=== PATIENT | male | born 1950 | race Caucasian/White ===

== ENCOUNTER 2017-08-06 14:25 | Emergency (ER) | payer MEDICARE ==
[~2017-08-06] VITALS: Ht 190.5 cm; Wt 109.0 kg
[2017-08-06 14:28] VITALS: BP 144/87; PULSE 95; RESP 16; TEMP 98; O2SAT 97
[2017-08-06] MEDS ORDERED: APIX5TAB PO (14:41)
[2017-08-06] MEDS ORDERED: LYRI150C PO (14:41)
[2017-08-06] MEDS ORDERED: DILT120T PO (14:41)
--- NOTE | 2017-08-06 14:50 | PD ---
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 States that he was walking in his house slid on a rug and bumped his toe. Patient says his pain is 3 out of 10, non radiating. He has had ' significant' bleeding . Denies head trauma or falls. He was able to catch himself as he was sliding and did not have any other injuries during this incident. Denies foot or ankle pain otherwise. He is unable to move his toe through full range of motion. PFSH Past Medical History Atrial Fibrillation: Yes Medical other: Yes (NEUROPATHY) Tetanus Vaccination: < 5 Years Influenza Vaccination: No ?: Not Past Surgical History Surgical History: No Previous Surgery Tonsillectomy: Yes Social History Alcohol Use: Yes (OCC) Tobacco Use: No Allergies-Medications (Allergen,Severity, Reaction): Coded Allergies: No Known Allergies (Unverified , 08/06/17) Reported Meds & Prescriptions Reported Meds & Active Scripts Active Hydrocodone-Acetaminophen 5-325 mg Tab 1 Tab PO Q4H PRN 3 Days Keflex (Cephalexin) 500 Mg Cap 500 Mg PO Q8H 10 Days Reported Lyrica (Pregabalin) 150 Mg Cap 150 Mg PO DAILY Eliquis (Apixaban) 5 Mg Tab 5 Mg PO DAILY Diltiazem (Diltiazem HCl) 120 Mg Tab 120 Mg PO DAILY Review of Systems Except as stated in HPI: all other systems reviewed are Neg Physical Exam Narrative GENERAL: Well-nourished in no apparent distress SKIN: Focused skin assessment warm/dry. HEAD: Atraumatic. Normocephalic. EYES: Pupils equal and round. No scleral icterus. No injection or drainage. ENT: No nasal bleeding or discharge. Mucous membranes pink and moist. NECK: Trachea midline. No JVD. No midline tenderness CARDIOVASCULAR: Regular rate and rhythm. No murmur appreciated. RESPIRATORY: No accessory muscle use. Clear to auscultation. Breath sounds equal bilaterally. MUSCULOSKELETAL: No obvious deformities. No clubbing. No cyanosis. No edema. left great toe- apparent laceration of the flexor tendon, persistent bleeding, not grossly contaminated, 2 cm linear laceration over the dorsal aspect of PIP. Unable to fully assess neurovascular status is patient has idiopathic neuropathy and he personally does not know what is normal for him. NEUROLOGICAL: Awake and alert. No obvious cranial nerve deficits. Motor grossly within normal limits. Normal speech. BACK: No CVA tenderness. No rash. No point tenderness on palpation of the spine. PSYCHIATRIC: Appropriate mood and affect; insight and judgment normal. Data Data Last Documented VS Vital Signs Date Time Temp Pulse Resp B/P (MAP) Pulse Ox O2 Delivery O2 Flow Rate FiO2 08/06/17 14:28 98.0 95 16 144/87 (106) 97 Orders Orders Foot, Limited (2vws) (08/06/17 ) Tetanus/Diphtheria Tox Adult (Tetanus/Di (08/06/17 15:45) Support Splint (08/06/17 16:38) Cephalexin (Keflex) (08/06/17 16:45) Ed Discharge Order (08/06/17 17:11) Fiberglass Short Leg Splint Ad (08/06/17 ) MDM Medical Decision Making Medical Screen Exam Complete: Yes Emergency Medical Condition: Yes Differential Diagnosis Left great toe laceration, fracture, abrasion Narrative Course 66-year-old male with a 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 States that he was walking in his house slid on a rug and bumped his toe. Patient says his pain is 3 out of 10, non radiating. He has had ' significant' bleeding . Denies head trauma or falls. He was able to catch himself as he was sliding and did not have any other injuries during this incident. Denies foot or ankle pain otherwise. He is unable to move his toe through full range of motion. Vital signs stable. Physical exam findings consistent with a tendon rupture with laceration of the right great toe, persistent bleeding. Last Impressions Foot X-Ray 08/06/17 0000 Signed Impressions: Service Date/Time: Sunday, August 06, 2017 15:18 - CONCLUSION: Unremarkable study. Dasia Steward MD I requested assistance of my supervising physician, Dr Luis, who assisted me in repair of his laceration. He was found to have a significant tendon involvement. Patient follows podiatry regularly. Advised that he should follow-up as scheduled this week. Keflex and hydrocodone prescribed for outpatient use. Follow-up in emergency department for worsening or persistent symptoms Procedures Procedure Narrative LACERATION LOCATION: left toe PIP LENGTH: 3cm NUMBER OF STITCHES/JOANNA: 2, 1 simple interrupted, one horizontal mattress, see Dr. Luis's note for further information regarding repair REPAIR: The area of the laceration was prepped with Betadine and sterilely draped. A digital block was performed with 1% lidocaine without epinephrine. The wound was copiously irrigated and explored without evidence of foreign body , tendon injury or neurovascular injury. The wound was closed using 5-0 Prolene. This was a single layer repair. A sterile dressing was applied. The patient was advised to keep the dressing clean and dry. Patient tolerated the procedure well. Diagnosis Primary Impression: Toe laceration Qualified Codes: S91.112A - Laceration without foreign body of left great toe without damage to nail, initial encounter Additional Impression: Ligament rupture Referrals: [facility] Additional Instructions: Follow up with your primary care physician within 2-3 days. If your symptoms persist or worsen, return to the emergency department. Keep area clean and dry. You may use [id number] triple antibiotic ointments for your injury daily. Change dressings daily. If bleeding starts again, applied pressure and elevate the area. If he developed increased redness, swelling, or pain return to the emergency department. Suture removal in 7-10 days. Follow-up with food quality tester as soon as possible. Scripts Hydrocodone-Acetaminophen (Hydrocodone-Acetaminophen) 5-325 mg Tab 1 TAB PO Q4H Y for PAIN for 3 Days, #9 TAB 0 Refills Prov: Gilberto Luis MD 08/06/17 Cephalexin (Keflex) 500 Mg Cap 500 MG PO Q8H for Infection for 10 Days, #30 CAP 0 Refills Prov: Alanis Montgomery 08/06/17 Disposition: 01 DISCHARGE HOME Condition: Stable Alanis Montgomery Aug 06, 2017 14:50
[2017-08-06] MEDS ORDERED: TETANUS/DIPHTHERIA TOXOID ADULT 0.5 ML VIAL IM ONE (15:45)
--- NOTE | 2017-08-06 15:53 | RADRPT ---
EXAM DATE/TIME: 08/06/2017 15:18 [facility] COMPARISON: No previous studies available for comparison. INDICATIONS : Left foot pain, first digit after slipping in condo today. Unsure what he cut his toe on. MEDICAL HISTORY : None. SURGICAL HISTORY : None. ENCOUNTER: Initial ACUITY: 1 day PAIN SCORE: 3/10 LOCATION: Left foot , entire first digit. FINDINGS: No definite fractures, or dislocations are identified. No definite lytic or sclerotic lesion is seen . CONCLUSION: Unremarkable study. KThania Steward MD on August 06, 2017 at 15:51 Board Certified Radiologist. This report was verified electronically.
[2017-08-06] MEDS ORDERED: CEPH-460 PO (16:40)
[2017-08-06] MEDS ORDERED: CEPHALEXIN MONOHYDRATE 500 MG CAP PO ONE (16:45)
--- NOTE | 2017-08-06 16:46 | PD ---
Physical Exam Date Seen by Provider: Aug 06, 2017 Time Seen by Provider: 16:43 Narrative The PA came for help since she was having hard time approximating the skin edges of the laceration. I did the procedure. Please refer to my procedure note. Patient tolerated the procedure well. I've asked for a posterior splint since in my opinion patient has probably torn the PIP joint ligaments of that great toe. Patient will be discharged home on antibiotic and crutches. He follows up with Dr. Blunt and said he will follow-up early next week. Data Data Last Documented VS Orders Orders Foot, Limited (2vws) (08/06/17 ) Tetanus/Diphtheria Tox Adult (Tetanus/Di (08/06/17 15:45) Support Splint (08/06/17 16:38) Cephalexin (Keflex) (08/06/17 16:45) Ed Discharge Order (08/06/17 17:11) Fiberglass Short Leg Splint Ad (08/06/17 ) MDM Supervised Visit with MARISA: Yes Procedures Procedure Narrative LACERATION: Complicated left big toe laceration LOCATION: Left big toe just proximal to the nail cuticle LENGTH: 5 cm NUMBER OF STITCHES/JOANNA: 8 stitches REPAIR: The area of the laceration was prepped with Betadine and sterilely draped. The laceration was infiltrated with 1% lidocaine. This was done by the PA. The wound was copiously irrigated and explored without evidence of foreign body, tendon injury or neurovascular injury. The wound was closed using 3-0 Prolene. This was a single layer repair. A sterile dressing was applied. The patient was advised to keep the dressing clean and dry. Patient tolerated the procedure well. Diagnosis Primary Impression: Toe laceration Qualified Codes: S91.112A - Laceration without foreign body of left great toe without damage to nail, initial encounter Additional Impression: Ligament rupture Referrals: [facility] Additional Instruction: Follow up with your primary care physician within 2-3 days. If your symptoms persist or worsen, return to the emergency department. Keep area clean and dry. You may use [id number] triple antibiotic ointments for your injury daily. Change dressings daily. If bleeding starts again, applied pressure and elevate the area. If he developed increased redness, swelling, or pain return to the emergency department. Suture removal in 7-10 days. Follow-up with journeyman lineman as soon as possible. Scripts Hydrocodone-Acetaminophen (Hydrocodone-Acetaminophen) 5-325 mg Tab 1 TAB PO Q4H Y for PAIN for 3 Days, #9 TAB 0 Refills Prov: Gilberto Luis MD 08/06/17 Disposition: 01 DISCHARGE HOME Condition: Stable Gilberto Luis MD Aug 06, 2017 16:46
[2017-08-06] MEDS ORDERED: HYDR-3516 PO (17:11)
== END 2017-08-06 17:38 | disposition home or self-care (01) ==
LOC: PHEFT 14:25
DX: S91.112A Laceration without foreign body of left great toe without damage to nail, initial encounter (principal); S93.502A Unspecified sprain of left great toe, initial encounter; G60.9 Hereditary and idiopathic neuropathy, unspecified; W01.0XXA Fall on same level from slipping, tripping and stumbling without subsequent striking against object, initial encounter; Y92.009 Unspecified place in unspecified non-institutional (private) residence as the place of occurrence of the external cause; Z23 Encounter for immunization
CPT/HCPCS: 12004; 73620; 90471; 90714; 99284; E0113

== ENCOUNTER 2017-08-10 10:32 | Inpatient (IN) | payer OTHER, MEDICARE ==
[2017-08-10] VITALS (9 sets, daily range): BP systolic 101–119; BP diastolic 53–69; PULSE 76–110; RESP 15–20; TEMP 97.7–99.7; O2SAT 94–97
[~2017-08-10] VITALS: Ht 190.5 cm; Wt 115.5 kg
[~2017-08-10 10:32] MED LIST: APIX5TAB PO; CEPH-460 PO; DILT120T PO; HYDR-3516 PO; LYRI150C PO
[2017-08-10] MEDS ORDERED: DULO1CAP3 PO (10:50)
[2017-08-10] MEDS ORDERED: LEVA750T9 PO (10:50)
[2017-08-10] MEDS ORDERED: BACT800T5 PO (10:50)
[2017-08-10] MEDS ORDERED: GABA300C5 PO (10:50)
[2017-08-10] MEDS ORDERED: VANCOMYCIN INJ 1,500 MG in SODIUM CHLORID 0.9% 500 ML INJ 500 ML IV STA (10:59)
[2017-08-10] MEDS ORDERED: PIPERACIL-TAZO 4.5 GM PREMIX 100 ML IV STA (10:59)
--- NOTE | 2017-08-10 11:04 | PD ---
HPI Chief Complaint: Fever Time Seen by Provider: 10:45 Travel History International Travel<30 days: No Contact w/Intl Traveler<30days: No Traveled to known affect area: No History of Present Illness HPI This 66-year-old male presents for evaluation of fever. He was in his usual state of health until August 06. Has a history of neuropathy and he apparently injured his left great toe on that day. He was seen in the emergency department and had x-rays are negative for fracture or foreign body. He laceration of the left great toe which was sutured apparently with some difficulty. His says is considerable bleeding at this time. He is on Eliquis for atrial fibrillation. He had a follow-up visit with Dr. Blunt yesterday. That time additional x-rays were taken and he was told that there was a fracture which apparently had not been apparent on initial evaluation. He had been on Keflex since Tuesday. Last night the antibiotics were changed to Levaquin and Bactrim. This morning he developed a temperature 101. He has had some myalgias. He has neuropathy and does not have much discomfort with the toe. He has not had a sore throat or cough. Has not been any dysuria. He did take a Tylenol prior to coming in. PFSH Past Medical History Hx Anticoagulant Therapy: Yes Atrial Fibrillation: Yes Cardiovascular Problems: Yes Medical other: Yes (NEUROPATHY) Immunizations Current: Yes Past Surgical History Eye Surgery: Yes (BILATERAL CATARACTS REMOVED) Tonsillectomy: Yes Social History Alcohol Use: Yes (OCC) Tobacco Use: No Substance Use: No Allergies-Medications (Allergen,Severity, Reaction): Coded Allergies: No Known Allergies (Unverified , 08/10/17) Reported Meds & Prescriptions Reported Meds & Active Scripts Active Hydrocodone-Acetaminophen 5-325 mg Tab 1 Tab PO Q4H PRN [address] (Duloxetine HCl) 60 Mg Capdr 60 Mg PO HS Gabapentin 300 Mg Cap 300 Mg PO DAILY Bactrim DS (Sulfamethoxazole-Trimethoprim) 800-160 Mg Tab 1 Tab PO BID Levaquin (Levofloxacin) 750 Mg Tablet 750 Mg PO DAILY Lyrica (Pregabalin) 150 Mg Cap 150 Mg PO DAILY Eliquis (Apixaban) 5 Mg Tab 5 Mg PO DAILY Diltiazem (Diltiazem HCl) 120 Mg Tab 120 Mg PO DAILY Review of Systems Except as stated in HPI: all other systems reviewed are Neg General / Constitutional: Positive: Fever, Chills Eyes: No: Blurred Vision, Photophobia HENT: No: Headaches, Vertigo Cardiovascular: No: Chest Pain or Discomfort, Palpitations Respiratory: No: Cough, Shortness of Breath Gastrointestinal: No: Nausea, Vomiting, Diarrhea Genitourinary: No: Frequency Musculoskeletal: Positive: Myalgias Skin: Positive Rash Neurologic: No: Dizziness, Syncope Hematologic/Lymphatic: No: Easy Bruising Physical Exam Narrative GENERAL: Well-developed male SKIN: Focused skin assessment warm/dry. HEAD: Atraumatic. Normocephalic. EYES: Pupils equal and round. No scleral icterus. No injection or drainage. ENT: No nasal bleeding or discharge. Mucous membranes pink and moist. NECK: Trachea midline. No JVD. CARDIOVASCULAR: Irregular rate and rhythm. No murmur appreciated. RESPIRATORY: No accessory muscle use. Clear to auscultation. Breath sounds equal bilaterally. GASTROINTESTINAL: Abdomen soft, non-tender, nondistended. Hepatic and splenic margins not palpable. MUSCULOSKELETAL: No obvious deformities. No clubbing. No cyanosis. No edema. There is a sutured laceration of the left great toe. There is ecchymosis of the toe and some warmth. The left foot is warmer than the right. There is some erythema of the great toe extending up the front of the foot. NEUROLOGICAL: Awake and alert. No obvious cranial nerve deficits. Motor grossly within normal limits. Normal speech. PSYCHIATRIC: Appropriate mood and affect; insight and judgment normal. Data Data Last Documented VS Vital Signs Date Time Temp Pulse Resp B/P (MAP) Pulse Ox O2 Delivery O2 Flow Rate FiO2 08/10/17 11:10 95 Room Air 08/10/17 11:10 16 08/10/17 10:36 98.3 110 101/53 (69) Orders Orders Sepsis Workup Initiated (08/10/17 ) Complete Blood Count With Diff (08/10/17 10:59) Comprehensive Metabolic Panel (08/10/17 10:59) Lactic Acid Sepsis Protocol (08/10/17 10:59) Urinalysis - C+S If Indicated (08/10/17 10:59) Blood Culture (08/10/17 10:59) Blood Glucose (08/10/17 10:59) Ecg Monitoring (08/10/17 10:59) Iv Access Insert/Monitor (08/10/17 10:59) Oximetry (08/10/17 10:59) Oxygen Administration (08/10/17 10:59) Piperacil-Tazo 4.5 Gm Premix (Zosyn 4.5 (08/10/17 10:59) Vancomycin Inj (Vancomycin Inj) (08/10/17 10:59) Sodium Chlor 0.9% 1000 Ml Inj (Ns 1000 M (08/10/17 12:00) Labs Laboratory Tests Test 08/10/17 11:05 08/10/17 11:15 Urine Collection Type CLEAN CATCH Urine Color YELLOW Urine Turbidity CLEAR Urine pH 8.0 Urine Specific [place] 1.027 Urine Protein NEG mg/dL Urine Glucose (UA) 100 mg/dL Urine Ketones TRACE mg/dL Urine Occult Blood NEG Urine Nitrite NEG Urine Bilirubin NEG Urine Leukocyte Esterase NEG Urine WBC 0-2 /hpf Urine Mucus FEW /lpf Microscopic Urinalysis Comment CULT NOT INDICATED White Blood Count 14.4 TH/MM3 Red Blood Count 4.63 MIL/MM3 Hemoglobin 14.0 GM/DL Hematocrit 42.3 % Mean Corpuscular Volume 91.3 FL Mean Corpuscular Hemoglobin 30.1 PG Mean Corpuscular Hemoglobin Concent 33.0 % Red Cell Distribution Width 12.9 % Platelet Count 253 TH/MM3 Mean Platelet Volume 8.7 FL Neutrophils (%) (Auto) 90.0 % Lymphocytes (%) (Auto) 4.1 % Monocytes (%) (Auto) 4.0 % Eosinophils (%) (Auto) 1.7 % Basophils (%) (Auto) 0.2 % Neutrophils # (Auto) 13.0 TH/MM3 Lymphocytes # (Auto) 0.6 TH/MM3 Monocytes # (Auto) 0.6 TH/MM3 Eosinophils # (Auto) 0.2 TH/MM3 Basophils # (Auto) 0.0 TH/MM3 CBC Comment DIFF FINAL Differential Comment Blood Urea Nitrogen 18 MG/DL Creatinine 1.20 MG/DL Random Glucose 174 MG/DL Total Protein 7.1 GM/DL Albumin 3.4 GM/DL Calcium Level 8.8 MG/DL Alkaline Phosphatase 67 U/L Aspartate Amino Transf (AST/SGOT) 19 U/L Alanine Aminotransferase (ALT/SGPT) 41 U/L Total Bilirubin 0.8 MG/DL Sodium Level 138 MEQ/L Potassium Level 4.4 MEQ/L Chloride Level 104 MEQ/L Carbon Dioxide Level 25.0 MEQ/L Anion Gap 9 MEQ/L Estimat Glomerular Filtration Rate 61 ML/MIN Lactic Acid Level 2.6 mmol/L [facility] Medical Decision Making Medical Screen Exam Complete: Yes Emergency Medical Condition: Yes Medical Record Reviewed: Yes Differential Diagnosis Differential includes cellulitis of the toe, infected laceration, fracture Narrative Course White count is elevated at 14,000. His lactate is slightly elevated at 2.7. Blood sugar is 174. Patient does not have a history of diabetes. I discussed the case with Dr. Blunt who recommends intravenous antibiotics and admission. Diagnosis Primary Impression: Infected laceration Admitting Information Admitting Physician Requests: Admit Kyle Gautam MD Aug 10, 2017 11:04
[2017-08-10 11:26] LABS: BILIRUBIN, URINE NEG (NEG); BLOOD, URINE NEG (NEG); GLUCOSE,URINE 100 mg/dL (NEG); KETONE, URINE TRACE mg/dL (NEG); NITRITE,URINE NEG (NEG); URINE LEUKOCYTE ESTERASE NEG (NEG)
[2017-08-10 11:33] LABS: MUCUS URINE FEW /lpf (OCC); URINE COLOR YELLOW (YELLW/STRAW); WBC, URINE 0-2 /hpf (0-5)
[2017-08-10 11:35] LABS: CHLORIDE 104 MEQ/L (98-107); SODIUM (NA) 138 MEQ/L (136-145)
[2017-08-10 11:39] LABS: CALCIUM 8.8 MG/DL (8.5-10.1)
[2017-08-10 11:40] LABS: ALBUMIN 3.4 GM/DL (3.4-5.0); BLOOD UREA NITROGEN 18 MG/DL (7-18); GLUCOSE,RANDOM 174 MG/DL (74-106)
[2017-08-10 11:43] LABS: ALT (GPT) 41 U/L (12-78); AST (GOT) 19 U/L (15-37); GLOMERULAR FILTRATION RATE 61 ML/MIN (>89)
[2017-08-10 11:44] LABS: TOTAL BILIRUBIN ADULT 0.8 MG/DL (0.2-1.0); TOTAL PROTEIN 7.1 GM/DL (6.4-8.2)
[2017-08-10 11:46] LABS: ALKALINE PHOSPHATASE 67 U/L (45-117)
[2017-08-10 11:48] LABS: LACTIC ACID SEPSIS PROTOCOL 2.6 mmol/L (0.4-2.0)
[2017-08-10 11:57] LABS: BASOPHIL % 0.2 % (0.0-2.0); EOSINOPHIL # 0.2 TH/MM3 (0-0.4); EOSINOPHIL % 1.7 % (0.0-4.0); HEMATOCRIT 42.3 % (39.0-51.0); LYMPH % 4.1 % (9.0-44.0); LYMPHOCYTE # 0.6 TH/MM3 (1.0-4.8); MEAN CELL VOLUME 91.3 FL (80.0-100.0); MEAN CORPUSCULAR HEMOGLOBIN 30.1 PG (27.0-34.0); MEAN PLATELET VOLUME 8.7 FL (7.0-11.0); MONOCYTE # 0.6 TH/MM3 (0-0.9); PLATELET COUNT 253 TH/MM3 (150-450); RED BLOOD COUNT 4.63 MIL/MM3 (4.50-5.90); RED CELL DISTRIBUTION WIDTH 12.9 % (11.6-17.2); WHITE BLOOD COUNT 14.4 TH/MM3 (4.0-11.0)
[2017-08-10] MEDS ORDERED: SODIUM CHLOR 0.9% 1000 ML INJ 1,000 ML IV ONE (12:00)
[2017-08-10] MEDS ORDERED: Vancomycin Consult Pharmacy 1 EA OTHER SCH (15:30)
[2017-08-10] MEDS ORDERED: SODIUM CHLORIDE 0.9% FLUSH 10 ML FLUSH IV FLUSH PRN (15:30)
[2017-08-10] MEDS ORDERED: NALOXONE HCL 0.4 MG/ML AMP IV PUSH PRN (15:30)
[2017-08-10] MEDS ORDERED: ACETAMINOPHEN 325 MG TAB PO PRN (15:30)
--- NOTE | 2017-08-10 15:34 | HHI.HP ---
[facility] Unknown Admission Diagnosis INFECTED LACERATION LEFT GREAT TOE Diagnoses: Chief Complaint: left great toe discomfort Travel History International Travel<30 Days: No Contact w/Intl Traveler <30 Da: No Traveled to Known Affected Are: No History of Present Illness This patient is a 66-year-old male with a history of neuropathy. He had an injury of his left great toe volume living at home. He did have some bleeding after it was noted he had a laceration. He has been on Eliquis for atrial fibrillation. He follows up with his primary care doctor in [place] as well as a Dr. podiatry locally. He saw his phlebotomy technician Dr. lBunt and was sent to the emergency room because his toe was noted to be increasingly red, he had a fever of 101 and was feeling poorly. Patient's been seen again in emergency room today and recommended for admission due to signs of sepsis and toe issues. He notes no nausea or vomiting. He has a white cell count is elevated as well as blood sugars are elevated. His lactic acid was elevated. Patient is admitted for sepsis likely secondary to his left great toe infection. Review of Systems Constitutional: DENIES: Diaphoretic episodes, Fatigue, Fever, Weight gain, Weight loss, Chills, Dizziness, Change in appetite, Night Sweats Endocrine: DENIES: Heat/cold intolerance, Polydipsia, Polyuria, Polyphagia Eyes: DENIES: Blurred vision, Diplopia, Eye inflammation, Eye pain, Vision loss , Photosensitivity, Double Vision Ears, nose, mouth, throat: DENIES: Tinnitus, Hearing loss, Vertigo, Nasal discharge, Oral lesions, Throat pain, Hoarseness, Ear Pain, Running Nose, Epistaxis, Sinus Pain, Toothache, Odynophagia Respiratory: DENIES: Apneas, Cough, Snoring, Wheezing, Hemoptysis, Sputum production, Shortness of breath Cardiovascular: DENIES: Chest pain, Palpitations, Syncope, Dyspnea on Exertion , PND, Lower Extremity Edema, Orthopnea, Claudication Genitourinary: DENIES: Sexual dysfunction, Urinary frequency, Urinary incontinence, Urgency, Hematuria, Dysuria, Nocturia, Penile Discharge, Testicular Pain, Testicular Swelling Musculoskeletal: COMPLAINS OF: Joint pain Integumentary: DENIES: Abnormal pigmentation, Nail changes, Pruritus, Rash Hematologic/lymphatic: DENIES: Bruising, Lymphadenopathy Immunologic/allergic: DENIES: Eczema, Urticaria Neurologic: DENIES: Abnormal gait, Headache, Localized weakness, Paresthesias, Seizures, Speech Problems, Tremor, Poor Balance Psychiatric: DENIES: Anxiety, Confusion, Mood changes, Depression, Hallucinations, Agitation, Suicidal Ideation, Homicidal Ideation, Delusions Except as stated in HPI: all other systems reviewed are Neg Past Family Social History Past Medical History Fibrillation Neuropathy, nondiabetic Depression/anxiety Past Surgical History Tonsils Cataracts Reported Medications Reviewed in the EMR Allergies: Coded Allergies: No Known Allergies (Unverified , 08/10/17) Active Ordered Medications Reviewed in the EMR Family History Mother from, patient of heart failure, father from leukemia at 81 he also had diabetes and coronary disease Physical Exam Vital Signs Vital Signs Date Time Temp Pulse Resp B/P (MAP) Pulse Ox O2 Delivery O2 Flow Rate FiO2 08/10/17 15:00 87 16 119/68 (85) 96 21 08/10/17 14:25 97.7 88 15 110/65 (80) 96 Room Air 08/10/17 13:25 90 16 118/62 (80) 96 Room Air 08/10/17 12:25 88 16 108/69 (82) 97 Room Air 08/10/17 11:25 91 16 108/68 (81) 96 Room Air 08/10/17 11:10 95 Room Air 08/10/17 11:10 16 95 Room Air 08/10/17 10:36 98.3 110 18 101/53 (69) 97 Physical Exam GENERAL: This is a well-nourished, well-developed patient, in no apparent distress. SKIN: No rashes, ecchymoses or lesions. Cool and dry. HEAD: Atraumatic. Normocephalic. No temporal or scalp tenderness. EYES: Pupils equal round and reactive. Extraocular motions intact. No scleral icterus. No injection or drainage. ENT: Nose without bleeding, purulent drainage or septal hematoma. Throat without erythema, tonsillar hypertrophy or exudate. Uvula midline. Airway patent. NECK: Trachea midline. No JVD or lymphadenopathy. Supple, nontender, no meningeal signs. CARDIOVASCULAR: Regular rate and rhythm without murmurs, gallops, or rubs. RESPIRATORY: Clear to auscultation. Breath sounds equal bilaterally. No wheezes , rales, or rhonchi. GASTROINTESTINAL: Abdomen soft, non-tender, nondistended. No hepato-splenomegaly , or palpable masses. No guarding. MUSCULOSKELETAL: Extremities without clubbing, cyanosis, or edema. No joint tenderness, effusion, or edema noted. No calf tenderness. Negative Homans sign bilaterally. NEUROLOGICAL: Awake and alert. Cranial nerves II through XII intact. Motor and sensory grossly within normal limits. Five out of 5 muscle strength in all muscle groups. Normal speech. Laboratory Laboratory Tests Test 08/10/17 11:05 08/10/17 11:15 08/10/17 13:52 Urine Collection Type CLEAN CATCH Urine Color YELLOW Urine Turbidity CLEAR Urine pH 8.0 Urine Specific [place] 1.027 Urine Protein NEG Urine Glucose (UA) 100 Urine Ketones TRACE Urine Occult Blood NEG Urine Nitrite NEG Urine Bilirubin NEG Urine Leukocyte Esterase NEG Urine WBC 0-2 Urine Mucus FEW Microscopic Urinalysis Comment CULT NOT INDICATED White Blood Count 14.4 Red Blood Count 4.63 Hemoglobin 14.0 Hematocrit 42.3 Mean Corpuscular Volume 91.3 Mean Corpuscular Hemoglobin 30.1 Mean Corpuscular Hemoglobin Concent 33.0 Red Cell Distribution Width 12.9 Platelet Count 253 Mean Platelet Volume 8.7 Neutrophils (%) (Auto) 90.0 Lymphocytes (%) (Auto) 4.1 Monocytes (%) (Auto) 4.0 Eosinophils (%) (Auto) 1.7 Basophils (%) (Auto) 0.2 Neutrophils # (Auto) 13.0 Lymphocytes # (Auto) 0.6 Monocytes # (Auto) 0.6 Eosinophils # (Auto) 0.2 Basophils # (Auto) 0.0 CBC Comment DIFF FINAL Differential Comment Blood Urea Nitrogen 18 Creatinine 1.20 Random Glucose 174 Total Protein 7.1 Albumin 3.4 Calcium Level 8.8 Alkaline Phosphatase 67 Aspartate Amino Transf (AST/SGOT) 19 Alanine Aminotransferase (ALT/SGPT) 41 Total Bilirubin 0.8 Sodium Level 138 Potassium Level 4.4 Chloride Level 104 Carbon Dioxide Level 25.0 Anion Gap 9 Estimat Glomerular Filtration Rate 61 Lactic Acid Level 2.6 1.6 Date/Time Source Procedure Growth Status 08/10/17 11:25 Blood Peripheral Aerobic Blood Culture Pending Received 08/10/17 11:25 Blood Peripheral Anaerobic Blood Culture Pending Received Result Diagram: 08/10/17 1115 08/10/17 1115 Caprinsarwat VTE Risk Assessment Caprini VTE Risk Assessment: Mod/High Risk (score >= 2) VTE Pharm Contraindication: Coagulopathy,INR elevated Caprini Risk Assessment Model Point Value = 1 Point Value = 2 Point Value = 3 Point Value = 5 Age 41-60 Minor surgery BMI > 25 kg/m2 Swollen legs Varicose veins or History of unexplained or recurrent spontaneous Oral contraceptives or hormone replacement Sepsis (< 1 month) Serious lung disease, including pneumonia (< 1 month) Abnormal pulmonary function Acute myocardial infarction Congestive heart failure (< 1 month) History of inflammatory bowel disease Medical patient at bed rest Age 61-74 Arthroscopic surgery Major open surgery (> 45 min) Laparoscopic surgery (> 45 min) Malignancy Confined to bed (> 72 hours) Immobilizing plaster cast Central venous access Age >= 75 History of VTE Family history of VTE Factor V Leiden Prothrombin [id number] Lupus anticoagulant Anticardiolipin antibodies Elevated serum homocysteine Heparin-induced thrombocytopenia Other congenital or acquired thrombophilia Stroke (< 1 month) Elective arthroplasty Hip, pelvis, or leg fracture Acute spinal cord injury (< 1 month) Prophylaxis Regimen Total Risk Factor Score Risk Level Prophylaxis Regimen 0-1 Low Early ambulation 2 Moderate Order ONE of the following: *Sequential Compression Device (SCD) *Heparin 5000 units SQ BID 3-4 Higher Order ONE of the following medications: *Heparin 5000 units SQ TID *Enoxaparin/Lovenox 40 mg SQ daily (WT < 150 kg, CrCl > 30 mL/min) *Enoxaparin/Lovenox 30 mg SQ daily (WT < 150 kg, CrCl > 10-29 mL/min) *Enoxaparin/Lovenox 30 mg SQ BID (WT < 150 kg, CrCl > 30 mL/min) AND/OR *Sequential Compression Device (SCD) 5 or more Highest Order ONE of the following medications: *Heparin 5000 units SQ TID (Preferred with Epidurals) *Enoxaparin/Lovenox 40 mg SQ daily (WT < 150 kg, CrCl > 30 mL/min) *Enoxaparin/Lovenox 30 mg SQ daily (WT < 150 kg, CrCl > 10-29 mL/min) *Enoxaparin/Lovenox 30 mg SQ BID (WT < 150 kg, CrCl > 30 mL/min) AND *Sequential Compression Device (SCD) Assessment and Plan Problem List: (1) Afib ICD Code: I48.91 - Unspecified atrial fibrillation Plan: Continue Eliquis and diltiazem, currently rate controlled (2) Neuropathy ICD Code: G62.9 - Polyneuropathy, unspecified Plan: Patient takes Lyrica and gabapentin which we will continue He has minimal feeling in the feet and pain is minimal at this time (3) Infected laceration ICD Code: T14.8XXA - Other injury of unspecified body region, initial encounter ; L08.9 - Local infection of the skin and subcutaneous tissue, unspecified Status: Acute Plan: Continue Zosyn and vancomycin Follow-up with podiatry f/u mri Physician Certification 2 Midnight Certification Type: Admission for Inpatient Services Order for Inpatient Services The services are ordered in accordance with Medicare regulations or non- Medicare payer requirements, as applicable. In the case of services not specified as inpatient-only, they are appropriately provided as inpatient services in accordance with the 2-midnight benchmark. Estimated LOS (days): 3 3 days is the estimated time the patient will need to remain in the hospital, assuming treatment plan goals are met and no additional complications. Post-Hospital Plan: Gabrielle Garza MD Aug 10, 2017 15:34
[2017-08-10] MEDS ORDERED: ONDANSETRON HCL 4 MG/2 ML VIAL IVP PRN (16:00)
[2017-08-10] MEDS ORDERED: ACETAMINOPHEN/HYDROcodone 325 MG/5 MG TAB PO PRN (16:00)
[2017-08-10] MEDS ORDERED: VANCOMYCIN INJ 1,000 MG in SODIUM CHLOR 0.9% 250 ML INJ 250 ML IV ONE (16:00)
[2017-08-10] MEDS: PREGABALIN 75 MG CAP PO SCH (19:18)
[2017-08-10] MEDS: DULoxetine HCl DR 60 MG CAP PO SCH (19:21)
[2017-08-10] MEDS ORDERED: MAGNESIUM HYDROXIDE SUSP 30 ML CUP PO PRN (21:00)
[2017-08-10] MEDS: PIPERACIL-TAZO 4.5 GM PREMIX 100 ML IV SCH (21:13)
[2017-08-10] MEDS: APIXABAN 5 MG TABLET PO SCH (21:13)
[2017-08-10] MEDS: SODIUM CHLORIDE 0.9% FLUSH 10 ML FLUSH IV FLUSH SCH (21:14)
--- NOTE | 2017-08-10 22:29 | MB ---
cc: TRANG MARTÍNEZ DATE OF CONSULTATION 08/10/2017 CHIEF COMPLAINT Left foot toe infection. HISTORY OF PRESENT ILLNESS Mr. Hamilton is a very pleasant 66-year-old male patient with a history of an injury to his left hallux. This injury occurred approximately 5 days ago. He did go to the emergency room to have the laceration evaluated. There was no fracture noted and the emergency room doctor sutured the area closed. The patient saw Dr. Blunt with a followup yesterday and Dr. Blunt felt that there had been an open fracture at some point in time but as it was already sutured he advised the patient simply to monitor it for any signs of infection. This morning the patient sent a photograph to his family doctor as he has had concerns about the appearance of the toe and his family doctor felt he should be evaluated in the emergency room. At that time the patient did have 14,000 white count. He denies any pain as he does have neuropathy. He denies any nausea, vomiting, fever, headaches or chills. PAST MEDICAL HISTORY Includes: 1. Atrial fibrillation. 2. Non diabetic neuropathy. 3. Depression. PAST SURGICAL HISTORY Includes: 1. Tonsillectomy. 2. Cataract. MEDICATIONS Please see the list. ALLERGIES NO KNOWN DRUG ALLERGIES. FAMILY HISTORY The patient lives at home with his . Vital signs, temperature is 99.7 which is also T-max. Pulse is 76, respiratory rate 18, blood pressure 109/68, pulse ox 94% O2 on room air. LABORATORY DATA White count is 14.4, hemoglobin 14.0, hematocrit 42.3, platelet count 253. Sodium 138, potassium 4.4, chloride 104, carbon dioxide 25.0, BUN 18. Urine culture was negative. Blood cultures are pending. IMAGING Foot MRI is pending. PHYSICAL EXAMINATION EXTREMITIES: On physical exam the patient has palpable DP and PT pulses. Cap fill time is less than 3 seconds. Gross sensation is diminished but intact. Right foot is unremarkable. The left foot dorsal hallux just proximal to the cuticle has a transverse laceration which is a well coapted with sutures intact. There is some noted ecchymosis as well as some erythema extending to the level of the MPJ. There is mild to moderate edema. Active range of motion is within normal limits. ASSESSMENT/PLAN 1. Status post open joint dislocation with suture closure. 2. Left foot cellulitis. - MRI is pending to rule out osteomyelitis. - If the patient is found to have osteomyelitis given the acute nature and the overall health of the patient, I feel he would be best served with long-term IV antibiotics opposed to an amputation, consider an infectious disease consultation. - Dressing was applied. Dressing changes are not needed unless the dressing becomes soiled. - Weight bear as tolerated in surgical shoe. - I spoke to the patient at length regarding possible concerns as well as possible treatment options. We will continue to monitor closely while in-house at this time. More information to follow the results of the MRI. Thank you for this consultation. Trang CALABRESE /7:04 PM /9:46 PM MTDD
[2017-08-11] VITALS: BP 122/70; PULSE 96; RESP 20; TEMP 98.8; O2SAT 95
[2017-08-11 04:00] VITALS: TEMP 96.8
[2017-08-11] MEDS: PIPERACIL-TAZO 4.5 GM PREMIX 100 ML IV SCH ×3 (04:42→20:48)
[2017-08-11 06:44] LABS: AUTOMATED NEUTROPHIL # 4.8 TH/MM3 (1.8-7.7); BASOPHIL % 0.5 % (0.0-2.0); EOSINOPHIL # 0.5 TH/MM3 (0-0.4); EOSINOPHIL % 6.5 % (0.0-4.0); HEMATOCRIT 37.8 % (39.0-51.0); HEMOGLOBIN 12.4 GM/DL (13.0-17.0); LYMPH % 19.1 % (9.0-44.0); LYMPHOCYTE # 1.4 TH/MM3 (1.0-4.8); MEAN CELL VOLUME 90.9 FL (80.0-100.0); MEAN CORPUSCULAR HEMOGLOBIN 29.8 PG (27.0-34.0); MEAN CORPUSCULAR HGB CONC 32.8 % (32.0-36.0); MEAN PLATELET VOLUME 8.5 FL (7.0-11.0); MONO % 6.9 % (0.0-8.0); MONOCYTE # 0.5 TH/MM3 (0-0.9); PLATELET COUNT 229 TH/MM3 (150-450); RED BLOOD COUNT 4.16 MIL/MM3 (4.50-5.90); RED CELL DISTRIBUTION WIDTH 12.7 % (11.6-17.2); WHITE BLOOD COUNT 7.3 TH/MM3 (4.0-11.0)
[2017-08-11 07:11] LABS: BICARBONATE 27.9 MEQ/L (21.0-32.0); CALCIUM 8.2 MG/DL (8.5-10.1)
[2017-08-11 08:00] VITALS: BP 111/72; PULSE 82; RESP 18; TEMP 97.4; O2SAT 92
[2017-08-11] MEDS: GABAPENTIN 300 MG CAP PO SCH (08:48)
[2017-08-11] MEDS: APIXABAN 5 MG TABLET PO SCH ×2 (08:48→20:48)
[2017-08-11] MEDS: DILTIAZEM HCL 60 MG TAB PO SCH (08:48)
[2017-08-11] MEDS: SODIUM CHLORIDE 0.9% FLUSH 10 ML FLUSH IV FLUSH SCH ×2 (09:00→20:48)
[2017-08-11] MEDS ORDERED: INFLUENZA VIRUS VACCINE (QUADRIVALENT) 0.5 ML SYR IM ONE (10:00)
[2017-08-11] MEDS ORDERED: PNEUMOCOCCAL POLYVALENT INJ 25 MCG/0.5 ML SYR IM ONE (10:00)
[2017-08-11] MEDS ORDERED: GADODIAMIDE PF 287 MG/ML 5 ML VIAL (for RAD MRI) IVCONTRAST ONE (10:59)
[2017-08-11] MEDS: VANCOMYCIN INJ 2,000 MG in SODIUM CHLORID 0.9% 500 ML INJ 500 ML IV SCH (11:32)
--- NOTE | 2017-08-11 11:56 | RADRPT ---
EXAM DATE/TIME: 08/11/2017 10:32 [facility] COMPARISON: No previous studies available for comparison. INDICATIONS : Osteomyelitis. Wound on dorsal aspect of great toe. CONTRAST: 22 cc Omniscan (gadodiamide) IV MEDICAL HISTORY : None. SURGICAL HISTORY : Tonsillectomy. Cataracts. ENCOUNTER: Initial ACUITY: 2 day PAIN SCORE: 4/10 LOCATION: Left Foot. TECHNIQUE: Multiplanar, multisequence MRI examination was performed without contrast and after the intravenous a dministration of gadolinium. FINDINGS: Mild, generalized soft tissue edema and patchy reactive appearing soft tissue enhancement of the grea t toe. No abscess. There is mild marrow edema of the distal phalanx and the head of the proximal phal anx without corresponding T1 signal abnormality. High-grade if not complete disruption seen of the distal flexor tendon of the great toe and approximately 4 mm. The extensor tendon is intact. CONCLUSION: 1. Cellulitis of the great toe without abscess or osteomyelitis at this time. 2. Distal disruption of the great toe flexor tendon. Jose Calixto MD on August 11, 2017 at 11:49 Board Certified Radiologist. This report was verified electronically.
[2017-08-11 12:00] VITALS: BP 107/67; PULSE 65; RESP 18; TEMP 97.3; O2SAT 97
--- NOTE | 2017-08-11 12:35 | HHI.PR ---
Subjective Remarks Patient seen in follow-up for sepsis syndrome with left toe infected laceration. Doing well today. White cell counts improved. No pain likely due to underlying neuropathy. MRI pending Plan discussed with patient and family Podiatry notes appreciated Objective Vitals Vital Signs Date Time Temp Pulse Resp B/P (MAP) Pulse Ox O2 Delivery O2 Flow Rate FiO2 08/11/17 08:00 97.4 82 18 111/72 (85) 92 08/11/17 04:00 96.8 08/11/17 00:00 98.8 96 20 122/70 (87) 95 08/10/17 20:00 97.8 86 20 111/66 (81) 95 08/10/17 17:30 99.7 76 18 109/68 (82) 94 08/10/17 15:00 87 16 119/68 (85) 96 21 08/10/17 14:25 97.7 88 15 110/65 (80) 96 Room Air 08/10/17 13:25 90 16 118/62 (80) 96 Room Air 08/10/17 12:25 88 16 108/69 (82) 97 Room Air I/O 08/10/17 08/10/17 08/10/17 08/11/17 08/11/17 08/11/17 06:59 14:59 22:59 06:59 14:59 22:59 Intake Total 1615 ml 830 ml 580 ml 100 ml Output Total 200 ml Balance 1415 ml 830 ml 580 ml 100 ml Intake Oral 480 ml 580 ml IV Total 1615 ml 350 ml 100 ml Output Urine Total 200 ml # Voids 1 2 3 # Bowel Movements 0 0 Result Diagram: 08/11/17 0545 08/11/17 0545 Objective Remarks GENERAL: This is a well-nourished, well-developed patient, in no apparent distress. CARDIOVASCULAR: Regular rate and rhythm without murmurs, gallops, or rubs. RESPIRATORY: Clear to auscultation. Breath sounds equal bilaterally. No wheezes , rales, or rhonchi. GASTROINTESTINAL: Abdomen soft, non-tender, nondistended. Normal active bowel sounds MUSCULOSKELETAL: left great toe laceration. Extremities without clubbing, cyanosis, or edema. NEURO: Alert & Oriented x4 to person, place, time, situation. Moves all ext x4 A/P Problem List: (1) Afib ICD Code: I48.91 - Unspecified atrial fibrillation Plan: Continue Eliquis and diltiazem, currently rate controlled (2) Neuropathy ICD Code: G62.9 - Polyneuropathy, unspecified Plan: Patient takes Lyrica and gabapentin which we will continue He has minimal feeling in the feet and pain is minimal at this time (3) Infected laceration ICD Code: T14.8XXA - Other injury of unspecified body region, initial encounter ; L08.9 - Local infection of the skin and subcutaneous tissue, unspecified Status: Acute Plan: Sepsis (Fever, wbc elevated and source) open joint dislocation with suture closure. Continue Zosyn and vancomycin Follow-up with podiatry f/u mri BC neg ID consult if needed on MRI findings Podiatry has recommended no dressing changes unless soiled WBAT, surgical shoe Assessment and Plan Spoke with Dr Smith's office [phone] to update on progress Gabrielle Christiansen MD Aug 11, 2017 12:32
[2017-08-11] MEDS ORDERED: AUGM875T3 PO (12:46)
[2017-08-11] MEDS ORDERED: CIPR-9 PO (12:46)
--- NOTE | 2017-08-11 12:46 | HHI.DCPOC ---
Discharge Care Plan Diagnosis: (1) Infected laceration Goals to Promote Your Health * To prevent worsening of your condition and complications * To maintain your health at the optimal level Directions to Meet Your Goals Take your medications as prescribed Follow your dietary instruction Follow activity as directed Keep your appointments as scheduled Take your immunizations and boosters as scheduled If your symptoms worsen call your PCP, if no PCP go to Urgent Care Center or Emergency Room Smoking is Dangerous to Your Health. Avoid second hand smoke Call the 24-hour hour crisis hotline for domestic abuse at Gabrielle Christiansen MD Aug 11, 2017 12:46
[2017-08-11 16:00] VITALS: BP 119/75; PULSE 78; RESP 18; TEMP 98.3; O2SAT 94
[2017-08-11] MEDS: PREGABALIN 75 MG CAP PO SCH (17:04)
[2017-08-11 20:00] VITALS: BP 140/81; PULSE 80; RESP 20; TEMP 98.2; O2SAT 93
[2017-08-11] MEDS: DULoxetine HCl DR 60 MG CAP PO SCH (20:48)
[2017-08-12] VITALS: BP 121/81; PULSE 88; RESP 16; TEMP 97.3; O2SAT 94
[2017-08-12] MEDS: VANCOMYCIN INJ 2,000 MG in SODIUM CHLORID 0.9% 500 ML INJ 500 ML IV SCH (03:57)
[2017-08-12] MEDS: PIPERACIL-TAZO 4.5 GM PREMIX 100 ML IV SCH (03:58)
[2017-08-12 08:00] VITALS: BP 149/88; PULSE 82; RESP 16; TEMP 97.1; O2SAT 97
--- NOTE | 2017-08-12 08:46 | PD.WCN.NOT ---
Wound Consult Description: Defer to podiatry orders Communicated with: Nemo Paez [facility] Aug 12, 2017 08:46
[2017-08-12] MEDS: SODIUM CHLORIDE 0.9% FLUSH 10 ML FLUSH IV FLUSH SCH (08:53)
[2017-08-12] MEDS: DILTIAZEM HCL 60 MG TAB PO SCH (08:53)
[2017-08-12] MEDS: APIXABAN 5 MG TABLET PO SCH (08:53)
[2017-08-12] MEDS: GABAPENTIN 300 MG CAP PO SCH (08:53)
--- NOTE | 2017-08-12 12:33 | HHI.DS ---
Discharge Summary Admission Date Aug 10, 2017 at 12:53 Discharge Date: Aug 12, 2017 Admitting Diagnosis INFECTED LACERATION LEFT GREAT TOE (1) Afib ICD Code: I48.91 - Unspecified atrial fibrillation (2) Neuropathy ICD Code: G62.9 - Polyneuropathy, unspecified (3) Infected laceration ICD Code: T14.8XXA - Other injury of unspecified body region, initial encounter ; L08.9 - Local infection of the skin and subcutaneous tissue, unspecified Status: Acute Procedures None Brief History - From Admission This patient is a 66-year-old male with a history of neuropathy. He had an injury of his left great toe volume living at home. He did have some bleeding after it was noted he had a laceration. He has been on Eliquis for atrial fibrillation. He follows up with his primary care doctor in [place] as well as a Dr. podiatry locally. He saw his shank stitcher Dr. Blunt and was sent to the emergency room because his toe was noted to be increasingly red, he had a fever of 101 and was feeling poorly. Patient's been seen again in emergency room today and recommended for admission due to signs of sepsis and toe issues. He notes no nausea or vomiting. He has a white cell count is elevated as well as blood sugars are elevated. His lactic acid was elevated. Patient is admitted for sepsis likely secondary to his left great toe infection. CBC/BMP: 08/11/17 0545 08/11/17 0545 Significant Findings Laboratory Tests Test 08/10/17 11:05 08/10/17 11:15 08/10/17 13:52 08/11/17 05:45 Urine Glucose (UA) 100 mg/dL (NEG) Urine Ketones TRACE mg/dL (NEG) Urine Mucus FEW /lpf (OCC) White Blood Count 14.4 TH/MM3 (4.0-11.0) Neutrophils (%) (Auto) 90.0 % (16.0-70.0) Lymphocytes (%) (Auto) 4.1 % (9.0-44.0) Neutrophils # (Auto) 13.0 TH/MM3 (1.8-7.7) Lymphocytes # (Auto) 0.6 TH/MM3 (1.0-4.8) Random Glucose 174 MG/DL (74-106) 136 MG/DL (74-106) Estimat Glomerular Filtration Rate 61 ML/MIN (>89) 75 ML/MIN (>89) Lactic Acid Level 2.6 mmol/L (0.4-2.0) Red Blood Count 4.16 MIL/MM3 (4.50-5.90) Hemoglobin 12.4 GM/DL (13.0-17.0) Hematocrit 37.8 % (39.0-51.0) Eosinophils (%) (Auto) 6.5 % (0.0-4.0) Eosinophils # (Auto) 0.5 TH/MM3 (0-0.4) Calcium Level 8.2 MG/DL (8.5-10.1) Imaging Last Impressions Foot MRI 08/11/17 0000 Signed Impressions: Service Date/Time: August 10:32 - CONCLUSION: 1. Cellulitis of the great toe without abscess or osteomyelitis at this time. 2. Distal disruption of the great toe flexor tendon. Jose Calixto MD PE at Discharge GENERAL: This is a well-nourished, well-developed patient, in no apparent distress. CARDIOVASCULAR: Regular rate and rhythm without murmurs, gallops, or rubs. RESPIRATORY: Clear to auscultation. Breath sounds equal bilaterally. No wheezes , rales, or rhonchi. GASTROINTESTINAL: Abdomen soft, non-tender, nondistended. Normal active bowel sounds MUSCULOSKELETAL: left great toe laceration. Extremities without clubbing, cyanosis, or edema. NEURO: Alert & Oriented x4 to person, place, time, situation. Moves all ext x4 Hospital Course This patient was seen and treated for infected laceration/cellulitis from recent left great toe injury. Patient has neuropathy and had a fairly minor traumatic injury to the toe which apparently developed into cellulitis. MRIs were not positive for evidence of osteomyelitis but there was some tender laceration which need to be followed up as outpatient with podiatry. Podiatry did see the patient here in the hospital recommended continuing antibiotics Pt Condition on Discharge: Good Discharge Disposition: Discharge Home Discharge Time: <= 30 minutes Discharge Instructions DIET: Follow Instructions for: As Tolerated, No Restrictions Activities you can perform: Regular-No Restrictions Follow up Referrals: Podiatry - 2-3 Days with Joe Blunt DPM New Medications: Amoxicillin-Clavulanate (Augmentin) 875-125 Mg Tab 1 TAB PO BID for Infection, #14 TAB 0 Refills Ciprofloxacin (Cipro) 500 Mg Tab 500 MG PO BID for Infection, #14 TAB 0 Refills Continued Medications: Apixaban (Eliquis) 5 Mg Tab 5 MG PO DAILY for Blood Clot Prevention, #60 TAB 0 Refills Diltiazem (Diltiazem) 120 Mg Tab 120 MG PO DAILY for Angina, #120 TAB [address] (Duloxetine DR) 60 Mg Capdr 60 MG PO HS, #30 CAP 0 Refills Gabapentin (Gabapentin) 300 Mg Cap 300 MG PO DAILY, #60 CAP 0 Refills Hydrocodone-Acetaminophen (Hydrocodone-Acetaminophen) 5-325 mg Tab 1 TAB PO Q4H PRN for PAIN for 3 Days, #9 TAB 0 Refills Pregabalin (Lyrica) 150 Mg Cap 150 MG PO DAILY, #60 CAP 0 Refills Gabrielle Christiansen MD Aug 12, 2017 12:33
[2017-08-12] MEDS ORDERED: PHARMACY ORDERED LAB ONE (21:45)
== END 2017-08-12 10:55 | disposition home or self-care (01) | DRG 872 ==
LOC: PHED 10:32 → PHEDA 12:53 → PH3B 14:58
PROVIDERS: ADMIT Hospitalist; ATTEND Hospitalist
DX: A41.9 Sepsis, unspecified organism (principal); G62.9 Polyneuropathy, unspecified; I48.91 Unspecified atrial fibrillation; L03.116 Cellulitis of left lower limb; L08.9 Local infection of the skin and subcutaneous tissue, unspecified; S91.112D Laceration without foreign body of left great toe without damage to nail, subsequent encounter; X58.XXXD Exposure to other specified factors, subsequent encounter; S93.105D Unspecified dislocation of left toe(s), subsequent encounter; F32.9 Major depressive disorder, single episode, unspecified; Z23 Encounter for immunization
CPT/HCPCS: 73720; 80048; 80053; 81001; 83605; 85025; 87040; 90686; 90732; 96365; 96367; A9579; J2543; J3370; J7030; J7040; J7050; Q2038

== ENCOUNTER 2017-08-16 09:30 | Emergency (ER) | payer MEDICARE, OTHER ==
[~2017-08-16] VITALS: Ht 190.5 cm; Wt 109.0 kg
[~2017-08-16 09:30] MED LIST changes: +AUGM875T3 PO; -CEPH-460 PO; +CIPR-9 PO; +DULO1CAP3 PO; +GABA300C5 PO
[2017-08-16 09:34] VITALS: BP 127/74; PULSE 94; RESP 16; TEMP 99.2; O2SAT 96
[2017-08-16] MEDS ORDERED: DOXY100C PO (09:46)
[2017-08-16] MEDS ORDERED: BACT800T5 PO (09:46)
--- NOTE | 2017-08-16 09:58 | PD ---
HPI Chief Complaint: Skin Problem Time Seen by Provider: 09:39 Travel History International Travel<30 days: No Contact w/Intl Traveler<30days: No Traveled to known affect area: No History of Present Illness HPI This 66-year-old male comes in because of redness of his left great toe. He has a history of neuropathy. On August 06 of this year he injured his left great toe. He was seen in the emergency department and had a wound sutured. Plain films at that time were interpreted as negative but apparently there was a fracture of the show. On August 10 he was admitted to the hospital for infection of this laceration. He was in the hospital until the . He had an MRI done which showed that there was cellulitis without abscess or osteomyelitis. There was also noted to be disruption of the great toe flexor tendon. He was released from the hospital last Tuesday. He was discharged on Bactrim and Augmentin. He had been seeing Dr. Blunt but has decided to follow up with Dr. Swenson. He went to Dr. Swenson's office yesterday and was changed from Bactrim and Augmentin to Bactrim and doxycycline. His changed his dressing this morning. She says there was some drainage from the wound and that it had an odor. She felt that the toe was redder then it had been. PFSH Past Medical History Hx Anticoagulant Therapy: Yes Atrial Fibrillation: Yes Depression: Yes Cardiovascular Problems: Yes Diminished Hearing: No Neurologic: Yes (Peripheral Neuropathy) Immunizations Current: Yes Influenza Vaccination: Yes Past Surgical History Eye Surgery: Yes (BILATERAL CATARACTS REMOVED) Tonsillectomy: Yes Social History Alcohol Use: Yes (OCC) Tobacco Use: No Substance Use: No Allergies-Medications (Allergen,Severity, Reaction): Coded Allergies: No Known Allergies (Unverified , 08/16/17) Reported Meds & Prescriptions Reported Meds & Active Scripts Active Reported Doxycycline Hyclate 100 Mg Cap 100 Mg PO BID Bactrim DS (Sulfamethoxazole-Trimethoprim) 800-160 Mg Tab 1 Tab PO BID Duloxetine DR (Duloxetine HCl) 60 Mg Capdr 60 Mg PO HS Gabapentin 300 Mg Cap 300 Mg PO DAILY Lyrica (Pregabalin) 150 Mg Cap 150 Mg PO DAILY Eliquis (Apixaban) 5 Mg Tab 5 Mg PO DAILY Diltiazem (Diltiazem HCl) 120 Mg Tab 120 Mg PO DAILY Review of Systems General / Constitutional: No: Fever, Chills Eyes: No: Diploplia HENT: No: Headaches, Vertigo Cardiovascular: No: Chest Pain or Discomfort, Palpitations Respiratory: No: Cough, Shortness of Breath Gastrointestinal: No: Nausea Genitourinary: No: Urgency, Frequency Musculoskeletal: No: Myalgias, Pain Skin: Positive Rash Neurologic: No: Weakness, Dizziness Endocrine: No: Heat Intolerance, Cold Intolerance Hematologic/Lymphatic: No: Easy Bruising Physical Exam Narrative GENERAL: [-] SKIN: Focused skin assessment warm/dry. HEAD: Atraumatic. Normocephalic. EYES: Pupils equal and round. No scleral icterus. No injection or drainage. ENT: No nasal bleeding or discharge. Mucous membranes pink and moist. NECK: Trachea midline. No JVD. CARDIOVASCULAR: Regular rate and rhythm. No murmur appreciated. RESPIRATORY: No accessory muscle use. Clear to auscultation. Breath sounds equal bilaterally. GASTROINTESTINAL: Abdomen soft, non-tender, nondistended. Hepatic and splenic margins not palpable. MUSCULOSKELETAL: No obvious deformities. No clubbing. No cyanosis. No edema. There is a transverse wound across the interphalangeal joint of the left great toe. The toe is erythematous and warm. There is no drainage at this time NEUROLOGICAL: Awake and alert. No obvious cranial nerve deficits. Motor grossly within normal limits. Normal speech. PSYCHIATRIC: Appropriate mood and affect; insight and judgment normal. Data Data Last Documented VS Vital Signs Date Time Temp Pulse Resp B/P (MAP) Pulse Ox O2 Delivery O2 Flow Rate FiO2 08/16/17 12:47 98.9 97 18 129/75 (93) 97 Room Air Orders Orders Complete Blood Count With Diff (08/16/17 09:51) Basic Metabolic Panel (Bmp) (08/16/17 09:51) Blood Culture (08/16/17 09:51) Wound Culture And Gram Stain (08/16/17 09:51) Vancomycin Inj (Vancomycin Inj) (08/16/17 12:30) Labs Laboratory Tests Test 08/16/17 09:55 White Blood Count 8.5 TH/MM3 Red Blood Count 4.67 MIL/MM3 Hemoglobin 13.4 GM/DL Hematocrit 42.3 % Mean Corpuscular Volume 90.7 FL Mean Corpuscular Hemoglobin 28.8 PG Mean Corpuscular Hemoglobin Concent 31.8 % Red Cell Distribution Width 12.6 % Platelet Count 304 TH/MM3 Mean Platelet Volume 7.6 FL Neutrophils (%) (Auto) 87.8 % Lymphocytes (%) (Auto) 5.6 % Monocytes (%) (Auto) 3.3 % Eosinophils (%) (Auto) 2.5 % Basophils (%) (Auto) 0.8 % Neutrophils # (Auto) 7.4 TH/MM3 Lymphocytes # (Auto) 0.5 TH/MM3 Monocytes # (Auto) 0.3 TH/MM3 Eosinophils # (Auto) 0.2 TH/MM3 Basophils # (Auto) 0.1 TH/MM3 CBC Comment DIFF FINAL Differential Comment Blood Urea Nitrogen 22 MG/DL Creatinine 1.10 MG/DL Random Glucose 191 MG/DL Calcium Level 8.7 MG/DL Sodium Level 138 MEQ/L Potassium Level 4.5 MEQ/L Chloride Level 104 MEQ/L Carbon Dioxide Level 27.8 MEQ/L Anion Gap 6 MEQ/L Estimat Glomerular Filtration Rate 67 ML/MIN MDM Medical Decision Making Medical Screen Exam Complete: Yes Emergency Medical Condition: Yes Medical Record Reviewed: Yes Differential Diagnosis Differential includes cellulitis Narrative Course White count today is 8000. I discussed the case with Dr. Swenson who requests that Dr. Alexander be involved. I spoke with Dr. Alexander and she will see the patient this afternoon. She vancomycin prior to discharge Diagnosis Primary Impression: Cellulitis of toe Referrals: Nicki Alexander MD Additional Instructions: To Dr. Nicki Alexander office now Disposition: 01 DISCHARGE HOME Condition: Stable Kyle Gautam MD Aug 16, 2017 09:58
[2017-08-16 10:09] LABS: AUTOMATED NEUTROPHIL # 7.4 TH/MM3 (1.8-7.7); BASOPHIL # 0.1 TH/MM3 (0-0.2); BASOPHIL % 0.8 % (0.0-2.0); EOSINOPHIL # 0.2 TH/MM3 (0-0.4); EOSINOPHIL % 2.5 % (0.0-4.0); HEMATOCRIT 42.3 % (39.0-51.0); HEMOGLOBIN 13.4 GM/DL (13.0-17.0); LYMPH % 5.6 % (9.0-44.0); LYMPHOCYTE # 0.5 TH/MM3 (1.0-4.8); MEAN CELL VOLUME 90.7 FL (80.0-100.0); MEAN CORPUSCULAR HEMOGLOBIN 28.8 PG (27.0-34.0); MEAN CORPUSCULAR HGB CONC 31.8 % (32.0-36.0); MEAN PLATELET VOLUME 7.6 FL (7.0-11.0); MONO % 3.3 % (0.0-8.0); MONOCYTE # 0.3 TH/MM3 (0-0.9); NEUT % 87.8 % (16.0-70.0); PLATELET COUNT 304 TH/MM3 (150-450); RED BLOOD COUNT 4.67 MIL/MM3 (4.50-5.90); RED CELL DISTRIBUTION WIDTH 12.6 % (11.6-17.2); WHITE BLOOD COUNT 8.5 TH/MM3 (4.0-11.0)
[2017-08-16 10:19] LABS: CALCIUM 8.7 MG/DL (8.5-10.1)
[2017-08-16 10:20] LABS: BICARBONATE 27.8 MEQ/L (21.0-32.0)
[2017-08-16 10:23] LABS: CREATININE 1.1 MG/DL (0.60-1.30)
[2017-08-16] MEDS ORDERED: VANCOMYCIN INJ 1,500 MG in SODIUM CHLORID 0.9% 500 ML INJ 500 ML IV ONE (12:30)
[2017-08-16 12:47] VITALS: BP 129/75; PULSE 97; RESP 18; TEMP 98.9; O2SAT 97
[2017-08-16 14:37] VITALS: BP 114/62; PULSE 90; RESP 16; TEMP 98.8; O2SAT 96
== END 2017-08-16 15:06 | disposition home or self-care (01) ==
LOC: PHED 09:30
DX: L03.032 Cellulitis of left toe (principal); G62.9 Polyneuropathy, unspecified; F32.9 Major depressive disorder, single episode, unspecified; Z79.01 Long term (current) use of anticoagulants; Z86.79 Personal history of other diseases of the circulatory system
CPT/HCPCS: 80048; 85025; 86403; 87040; 87070; 96365; 96366; 99284; J3370; J7040; 87205

== ENCOUNTER 2017-08-16 18:12 | Inpatient (IN) | payer OTHER, MEDICARE ==
[~2017-08-16] VITALS: Ht 190.5 cm; Wt 113.3 kg
[~2017-08-16 18:12] MED LIST changes: +BACT800T5 PO; +DOXY100C PO
[2017-08-16 18:17] VITALS: BP 112/71; PULSE 91; RESP 18; TEMP 100; O2SAT 94
[2017-08-16] MEDS ORDERED: Vancomycin Consult Pharmacy 1 EA OTHER SCH (19:15)
[2017-08-16] MEDS ORDERED: NALOXONE HCL 0.4 MG/ML AMP IV PUSH PRN (19:15)
[2017-08-16] MEDS ORDERED: SODIUM CHLORIDE 0.9% FLUSH 10 ML FLUSH IV FLUSH PRN (19:15)
--- NOTE | 2017-08-16 19:28 | PD ---
HPI Chief Complaint: Fever Time Seen by Provider: 19:03 Travel History International Travel<30 days: No Contact w/Intl Traveler<30days: No Traveled to known affect area: No History of Present Illness HPI 66-year-old male patient seen earlier by Dr. Buckley for a left toe cellulitis, released to follow-up with Dr. Alexander, returns to the ER today because he states that he is now running fevers of 101. He has not yet started on Levaquin which was prescribed, and is currently in the process of getting set up to get a PICC line tomorrow. He had been told by Dr. Alexander to return to the ER for any fevers. Case was discussed with Dr. Alexander and she states that he will have trouble getting a PICC line tomorrow as well and would prefer that the patient be admitted medically admitted to get a PICC line, IV vancomycin tonight. Modifying Factors: None Associated Signs & Symptoms: Fever, Dr. Alexander requests admission Risk Factors: Toe cellulitis PFSH Past Medical History Hx Anticoagulant Therapy: Yes Atrial Fibrillation: Yes Depression: Yes Cardiovascular Problems: Yes Diminished Hearing: No Neurologic: Yes (Peripheral Neuropathy) Immunizations Current: Yes Influenza Vaccination: Yes Past Surgical History Eye Surgery: Yes (BILATERAL CATARACTS REMOVED) Tonsillectomy: Yes Social History Alcohol Use: Yes (OCC) Tobacco Use: No Substance Use: No Allergies-Medications (Allergen,Severity, Reaction): Coded Allergies: No Known Allergies (Unverified , 08/16/17) Reported Meds & Prescriptions Reported Meds & Active Scripts Active Reported Doxycycline Hyclate 100 Mg Cap 100 Mg PO BID Duloxetine DR (Duloxetine HCl) 60 Mg Capdr 60 Mg PO HS Gabapentin 300 Mg Cap 300 Mg PO DAILY Lyrica (Pregabalin) 150 Mg Cap 150 Mg PO DAILY Eliquis (Apixaban) 5 Mg Tab 5 Mg PO DAILY Diltiazem (Diltiazem HCl) 120 Mg Tab 120 Mg PO DAILY Review of Systems Except as stated in HPI: all other systems reviewed are Neg Physical Exam Narrative GENERAL: Well-developed elderly white male patient currently in mild distress. Awake and oriented 3. SKIN: Focused skin assessment warm/dry. HEAD: Atraumatic. Normocephalic. EYES: Pupils equal and round. No scleral icterus. No injection or drainage. ENT: No nasal bleeding or discharge. Mucous membranes pink and moist. NECK: Trachea midline. No JVD. CARDIOVASCULAR: Regular rate and rhythm. No murmur appreciated. RESPIRATORY: No accessory muscle use. Clear to auscultation. Breath sounds equal bilaterally. GASTROINTESTINAL: Abdomen soft, non-tender, nondistended. MUSCULOSKELETAL: No obvious deformities. No clubbing. No cyanosis. No edema. There is notable erythema and edema over the left foot dorsum and the first toe is well bandaged. Tender to palpation. NEUROLOGICAL: Awake and alert. No obvious cranial nerve deficits. Motor grossly within normal limits. Normal speech. PSYCHIATRIC: Appropriate mood and affect; insight and judgment normal. Data Data Last Documented VS Vital Signs Date Time Temp Pulse Resp B/P (MAP) Pulse Ox O2 Delivery O2 Flow Rate FiO2 08/16/17 18:17 100.0 91 18 112/71 (85) 94 Orders Orders Admit Order (Ed Use Only) (08/16/17 19:13) Place In Observation (08/16/17 ) Vital Signs (Adult) Q4H (08/16/17 19:13) Activity Oob With Assistance (08/16/17 19:13) Border Measurer And Cutter / Telemetry .CONTINUOUS (08/16/17 19:13) Diet Heart Healthy (08/17/17 Breakfast) Sodium Chloride 0.9% Flush (Ns Flush) (08/16/17 19:15) Sodium Chloride 0.9% Flush (Ns Flush) (08/16/17 21:00) Case Management Consult (08/16/17 19:13) Naloxone Inj (Narcan Inj) (08/16/17 19:15) Vancomycin Consult Pharmacy (Vancomycin (08/16/17 19:15) Invasive Rad Dept Consult (08/16/17 ) Consult Infectious Disease (08/16/17 ) [facility] Medical Decision Making Medical Screen Exam Complete: Yes Emergency Medical Condition: Yes Medical Record Reviewed: Yes Differential Diagnosis Toe cellulitis Narrative Course Case is discussed with Dr. Lopes for admission per request of Dr. Alexander. Please see previous lab work from today. Diagnosis Primary Impression: Cellulitis of toe of left foot Admitting Information Admitting Physician Requests: Admit Iris Anthony MD Aug 16, 2017 19:28
[2017-08-16] MEDS ORDERED: VANCOMYCIN 1,000 MG/NS 250 ML IV ONE ×4 (20:00→22:00)
[2017-08-16 20:48] VITALS: PULSE 80; RESP 18; TEMP 100; O2SAT 94
[2017-08-16] MEDS: SODIUM CHLORIDE 0.9% FLUSH 10 ML FLUSH IV FLUSH SCH (20:57)
[2017-08-17] VITALS: BP 111/65; PULSE 82; RESP 18; TEMP 98; O2SAT 100
[2017-08-17 07:30] VITALS: BP 119/73; PULSE 98; RESP 20; TEMP 98.4; O2SAT 94
--- NOTE | 2017-08-17 08:41 | PD.CONS ---
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 Few days later- foot was red and swollen so started on PO Levaquin but next day was in hosp for 2-3 days for cellultulitis- treated with IV Vanco and Zosyn- MRI negative for osteo- sent home on Augmentin and Cipro- did not improve - changed to Doxy . Yesterday he was in ER in the morning given Vancomycin - then I saw him in my office andoutpatient IV antibiotics were being arranged for - however noticed left foot to be ore hot and he was feverish so came back last evening. Left foot looks much better today. Review of Systems Constitutional: COMPLAINS OF: Fever Endocrine: DENIES: Polyuria, Polyphagia Eyes: DENIES: Eye inflammation, Eye pain Ears, nose, mouth, throat: DENIES: Nasal discharge, Oral lesions Respiratory: DENIES: Sputum production, Shortness of breath Cardiovascular: COMPLAINS OF: Lower Extremity Edema, DENIES: Chest pain, Palpitations Gastrointestinal: DENIES: Abdominal pain, Diarrhea Genitourinary: DENIES: Urinary frequency, Urinary incontinence Musculoskeletal: DENIES: Back pain Integumentary: COMPLAINS OF: Abnormal pigmentation, DENIES: Pruritus Neurologic: COMPLAINS OF: Paresthesias, DENIES: Abnormal gait, Speech Problems Psychiatric: COMPLAINS OF: Anxiety, DENIES: Confusion Past Family Social History Allergies: Coded Allergies: No Known Allergies (Unverified , 08/16/17) Past Medical History Hx Anticoagulant Therapy: Yes Atrial Fibrillation: Yes Depression: Yes Cardiovascular Problems: Yes Diminished Hearing: No Neurologic: Yes (Peripheral Neuropathy) Immunizations Current: Yes Influenza Vaccination: Yes Past Surgical History Eye Surgery: Yes (BILATERAL CATARACTS REMOVED) Tonsillectomy: Yes Social History Alcohol Use: Yes (OCC) Tobacco Use: No Substance Use: No Family History Neuropathy Social History Occupation- [employer] Physical Exam Vital Signs Vital Signs Date Time Temp Pulse Resp B/P (MAP) Pulse Ox O2 Delivery O2 Flow Rate FiO2 08/17/17 00:00 98.0 82 18 111/65 (80) 100 08/16/17 20:48 100.0 80 18 94 Room Air 08/16/17 19:00 Room Air 08/16/17 18:17 100.0 91 18 112/71 (85) 94 Physical Exam GENERAL: This is a well-nourished, well-developed patient, in no apparent distress. SKIN: Left foot cellulitis improved from yesterday HEAD: Atraumatic. Normocephalic. No temporal or scalp tenderness. EYES: Pupils equal round and reactive. Extraocular motions intact. No scleral icterus. No injection or drainage. ENT: Nose without bleeding, purulent drainage or septal hematoma. Throat without erythema, tonsillar hypertrophy or exudate. Uvula midline. Airway patent. NECK: Trachea midline. No JVD or lymphadenopathy. Supple, nontender, no meningeal signs. CARDIOVASCULAR: Regular rate and rhythm without murmurs, gallops, or rubs. RESPIRATORY: Clear to auscultation. Breath sounds equal bilaterally. No wheezes , rales, or rhonchi. GASTROINTESTINAL: Abdomen soft, non-tender, nondistended. No hepato-splenomegaly , or palpable masses. No guarding. MUSCULOSKELETAL: Extremities wLeft foot with improved cellulitis from yesterday. Left big tow with wound with some bloody drainage but overal left foot and big toe are improved. NEUROLOGICAL: Awake and alert. Cranial nerves II through XII intact. Motor within normal limits. Five out of 5 muscle strength in all muscle groups. Normal speech.Has a peripheral neuropathy Laboratory Laboratory Tests Test 08/17/17 05:00 Creatinine 1.00 Estimat Glomerular Filtration Rate 75 Result Diagram: 08/17/17 0500 Assessment and Plan Problem List: (1) Cellulitis of toe of left foot ICD Codes: L03.032 - Cellulitis of left toe Status: Acute Plan: PICC line placement Vancomycin 1500 mg IV q12hrs with PO Levaquin 500 mg po daily x 7days as outpatient. Patient can follow up with me as a outpatient. Check CBC CMP CRP and Vancomycin trough on 2 nd day (2) Neuropathy ICD Codes: G62.9 - Polyneuropathy, unspecified Status: Chronic (3) Afib ICD Codes: I48.91 - Unspecified atrial fibrillation Status: Chronic Nicki Alexander MD Aug 17, 2017 08:41
--- NOTE | 2017-08-17 08:54 | HHI.HP ---
[facility] Primary Care Physician Unknown Admission Diagnosis toe cellulitis/fever Diagnoses: Chief Complaint: toe redness Travel History International Travel<30 Days: No Contact w/Intl Traveler <30 Da: No Traveled to Known Affected Are: No History of Present Illness 66/M being admitted for IV antibiotics for toe cellulitis. Patient came to the emergency department yesterday due to worsening redness of his left great toe despite being on oral antibiotics. He received a dose of vancomycin and then was directed to his infectious disease doctor evaluated the patient and sent him home w/ plans to get a prompt PICC line to be arranged as an outpatient for IV abx. However after going home, states that she patient had a fever and his toe felt hotter and appeared more red and thus they decided to come back to the emergency room. Pt originally received a laceration of left big toe when he tripped over a carpet at home on Aug 06. Patient denies walking with his toe exposed in any unsanitary environments such stagnant bodies of water. Review of Systems Except as stated in HPI: all other systems reviewed are Neg Past Family Social History Past Medical History Atrial fibrillation Idiopathic neuropathy Allergies: Coded Allergies: No Known Allergies (Unverified , 08/16/17) Family History No family history of recurrent skin infections Social History Denies smoking; endorses light occasional social drinking Physical Exam Vital Signs Vital Signs Date Time Temp Pulse Resp B/P (MAP) Pulse Ox O2 Delivery O2 Flow Rate FiO2 08/17/17 00:00 98.0 82 18 111/65 (80) 100 08/16/17 20:48 100.0 80 18 94 Room Air 08/16/17 19:00 Room Air 08/16/17 18:17 100.0 91 18 112/71 (85) 94 Physical Exam VS: afebrile GENERAL: Elderly white male, well-nourished, no acute distress SKIN: Warm and dry. EYES: No scleral icterus. No injection or drainage. ENT: NC/AT CARDIOVASCULAR: Regular rate and rhythm. no murmurs RESPIRATORY: No accessory muscle use. Clear to auscultation. Breath sounds equal bilaterally. GASTROINTESTINAL: Abdomen soft, non-tender, nondistended. Extremities: No clubbing, cyanosis, or edema. No obvious deformities. MUSCULOSKELETAL: grossly intact ROM with 5/5 strength in upper and lower extremities proximally; adequate muscle bulk and tone for age and habitus NEUROLOGICAL: Awake and alert. No obvious cranial nerve deficits. No facial droop nor slurred speech noted. PSYCHIATRIC: Appropriate mood and affect; insight and judgment normal. Laboratory Laboratory Tests Test 08/17/17 05:00 Creatinine 1.00 Estimat Glomerular Filtration Rate 75 Result Diagram: 08/17/17 0500 Caprini VTE Risk Assessment Caprini VTE Risk Assessment: Mod/High Risk (score >= 2) Caprini Risk Assessment Model Point Value = 1 Point Value = 2 Point Value = 3 Point Value = 5 Age 41-60 Minor surgery BMI > 25 kg/m2 Swollen legs Varicose veins or History of unexplained or recurrent spontaneous Oral contraceptives or hormone replacement Sepsis (< 1 month) Serious lung disease, including pneumonia (< 1 month) Abnormal pulmonary function Acute myocardial infarction Congestive heart failure (< 1 month) History of inflammatory bowel disease Medical patient at bed rest Age 61-74 Arthroscopic surgery Major open surgery (> 45 min) Laparoscopic surgery (> 45 min) Malignancy Confined to bed (> 72 hours) Immobilizing plaster cast Central venous access Age >= 75 History of VTE Family history of VTE Factor V Leiden Prothrombin [id number] Lupus anticoagulant Anticardiolipin antibodies Elevated serum homocysteine Heparin-induced thrombocytopenia Other congenital or acquired thrombophilia Stroke (< 1 month) Elective arthroplasty Hip, pelvis, or leg fracture Acute spinal cord injury (< 1 month) Prophylaxis Regimen Total Risk Factor Score Risk Level Prophylaxis Regimen 0-1 Low Early ambulation 2 Moderate Order ONE of the following: *Sequential Compression Device (SCD) *Heparin 5000 units SQ BID 3-4 Higher Order ONE of the following medications: *Heparin 5000 units SQ TID *Enoxaparin/Lovenox 40 mg SQ daily (WT < 150 kg, CrCl > 30 mL/min) *Enoxaparin/Lovenox 30 mg SQ daily (WT < 150 kg, CrCl > 10-29 mL/min) *Enoxaparin/Lovenox 30 mg SQ BID (WT < 150 kg, CrCl > 30 mL/min) AND/OR *Sequential Compression Device (SCD) 5 or more Highest Order ONE of the following medications: *Heparin 5000 units SQ TID (Preferred with Epidurals) *Enoxaparin/Lovenox 40 mg SQ daily (WT < 150 kg, CrCl > 30 mL/min) *Enoxaparin/Lovenox 30 mg SQ daily (WT < 150 kg, CrCl > 10-29 mL/min) *Enoxaparin/Lovenox 30 mg SQ BID (WT < 150 kg, CrCl > 30 mL/min) AND *Sequential Compression Device (SCD) Assessment and Plan Assessment and Plan Toe cellulitis - Failing outpatient therapy; consulted infectious disease and discuss case with them; plan is for PICC line and outpatient antibiotics - continue IV vanc until arrangements made; monitor troughs. A. fib - Continue home Eliquis and diltiazem Neuropathy - Continue home gabapentin and duloxetine on eliquis Physician Certification 2 Midnight Certification Type: Admission for Inpatient Services Order for Inpatient Services The services are ordered in accordance with Medicare regulations or non- Medicare payer requirements, as applicable. In the case of services not specified as inpatient-only, they are appropriately provided as inpatient services in accordance with the 2-midnight benchmark. Estimated LOS (days): 2 2 days is the estimated time the patient will need to remain in the hospital, assuming treatment plan goals are met and no additional complications. Post-Hospital Plan: Home Robbin Moses MD Aug 17, 2017 08:54
[2017-08-17] MEDS: GABAPENTIN 300 MG CAP PO SCH (09:00)
[2017-08-17] MEDS: APIXABAN 5 MG TABLET PO SCH (09:00)
[2017-08-17] MEDS: DILTIAZEM-CD 120 MG CAP ER PO SCH (09:45)
[2017-08-17] MEDS: SODIUM CHLORIDE 0.9% FLUSH 10 ML FLUSH IV FLUSH SCH ×2 (10:26→20:43)
[2017-08-17] MEDS: LEVOFLOXACIN 500 MG TAB PO SCH (10:26)
[2017-08-17 10:35] LABS: AUTOMATED NEUTROPHIL # 5.5 TH/MM3 (1.8-7.7); BASOPHIL % 0.3 % (0.0-2.0); EOSINOPHIL # 0.5 TH/MM3 (0-0.4); EOSINOPHIL % 7.4 % (0.0-4.0); HEMATOCRIT 35.8 % (39.0-51.0); HEMOGLOBIN 11.6 GM/DL (13.0-17.0); LYMPH % 13.2 % (9.0-44.0); MEAN CELL VOLUME 92.8 FL (80.0-100.0); MEAN CORPUSCULAR HEMOGLOBIN 30.2 PG (27.0-34.0); MEAN CORPUSCULAR HGB CONC 32.6 % (32.0-36.0); MEAN PLATELET VOLUME 8.3 FL (7.0-11.0); MONO % 4.8 % (0.0-8.0); MONOCYTE # 0.3 TH/MM3 (0-0.9); NEUT % 74.3 % (16.0-70.0); PLATELET COUNT 259 TH/MM3 (150-450); RED BLOOD COUNT 3.85 MIL/MM3 (4.50-5.90); RED CELL DISTRIBUTION WIDTH 13.1 % (11.6-17.2); WHITE BLOOD COUNT 7.3 TH/MM3 (4.0-11.0)
[2017-08-17 11:30] VITALS: BP 122/75; PULSE 93; RESP 20; TEMP 97.6; O2SAT 96
[2017-08-17 11:31] LABS: INTERNATIONAL NORMALIZED RATIO 1.1 RATIO; PROTHROMBIN TIME - PATIENT 10.7 SEC (9.8-11.6)
[2017-08-17] MEDS: VANCOMYCIN INJ 2,000 MG in SODIUM CHLORID 0.9% 500 ML INJ 500 ML IV SCH (12:12)
[2017-08-17 15:30] VITALS: BP 135/83; PULSE 87; RESP 20; TEMP 96.4; O2SAT 94
--- NOTE | 2017-08-17 16:47 | RADRPT ---
EXAM DATE/TIME: 08/17/2017 16:11 [facility] COMPARISON: No previous studies available for comparison. INDICATIONS : Picc line placement. MEDICAL HISTORY : None. SURGICAL HISTORY : None. ENCOUNTER: Initial ACUITY: 1 day PAIN SCORE: 0/10 LOCATION: Bilateral chest FINDINGS: A single view of the chest demonstrates the lungs to be symmetrically aerated without evidence of mas s, infiltrate or effusion. PICC line in good position. Mild compensated cardiac megaly. Osseous st ructures are intact. CONCLUSION: PICC line in good position.. Cristhian Sneed MD FACR on August 17, 2017 at 16:44 Board Certified Radiologist. This report was verified electronically.
[2017-08-17 20:00] VITALS: BP 109/72; PULSE 81; RESP 17; TEMP 97.8; O2SAT 94
[2017-08-17] MEDS ORDERED: DULoxetine HCl DR 60 MG CAP PO SCH (21:00)
[2017-08-18] VITALS: BP 118/68; PULSE 83; RESP 18; TEMP 98.5; O2SAT 95
[2017-08-18] MEDS: VANCOMYCIN INJ 2,000 MG in SODIUM CHLORID 0.9% 500 ML INJ 500 ML IV SCH (03:55)
[2017-08-18 08:00] VITALS: BP 133/79; PULSE 82; RESP 18; TEMP 97.9; O2SAT 99
[2017-08-18] MEDS: DILTIAZEM-CD 120 MG CAP ER PO SCH (08:19)
[2017-08-18] MEDS: GABAPENTIN 300 MG CAP PO SCH (08:19)
[2017-08-18] MEDS: APIXABAN 5 MG TABLET PO SCH (08:19)
[2017-08-18] MEDS: SODIUM CHLORIDE 0.9% FLUSH 10 ML FLUSH IV FLUSH SCH (08:21)
[2017-08-18] MEDS: LEVOFLOXACIN 500 MG TAB PO SCH (11:09)
--- NOTE | 2017-08-18 11:19 | HHI.FF ---
cc: Nicki Alexander MD Infusion Therapy Location of Infusion Therapy: Home Health Care IV Infusion Order Patient Information Patient Weight 113.3 kg Diagnosis: (1) Cellulitis of toe of left foot (2) Neuropathy Coded Allergies: No Known Allergies (Unverified , 08/16/17) Administer Medication Vancomycin 1.5 grams IV q 12 hours Start Treatment: Aug 18, 2017 Stop Treatment: Aug 25, 2017 Additional Information Venous access: PICC Line Additional Instructions [x] Peripheral flush and dressing changes per protocol [x] Implanted port and central line construction supervisor: * Implanted port: 10 ml Normal Saline followed by 5 ml Heparin 100 units/ml Heparin flush after each use and monthly to maintain. [] May leave port accessed during therapy. [] May leave peripheral site accessed for duration of therapy. [x] If patient has SOB or respiratory distress, check oxygen saturation. If less than 90% or clinical signs of respiratory distress, administer oxygen at 2 L/min. via nasal cannula and notify physician. [x] Anaphylaxis/Reaction orders: * Stop infusion. * Keep IV line open with saline flush. * Notify physician. * Monitor vital signs every 15 minutes until symptoms resolve. * Check Oxygen saturation; Oxygen at 2 L/min. via nasal cannula if less than 90% or clinical signs of respiratory distress. * Administer diphenhydramine (Benadryl) 25 mg IV STAT, (unless patient has received as pre-med). May repeat once, if necessary. * Solu-Cortef 250 mg IVP over 30-60 seconds, use 100 mg vials for each dissolution. * Epinephrine (1mg/1 ml) 0.3 mg subcutaneously or IVP now with any signs of respiratory distress. * Check with physician for new additional pre-med orders if patient is re- challenged or re-treated. [x] May remove PICC line when treatment complete, after confirming with Physician. [x] If the patient is admitted to the hospital, the ED, or transferred via [facility] , complete transfer form including medication reconciliation order sheet. Laboratory Tests Weekly Labs: CBC w/diff, CMP, CRP, SED Rate, Vancomycin Trough Additional Information Do labs on 08/22/17 Nicki Alexander MD Aug 18, 2017 11:19
[2017-08-18] MEDS ORDERED: VANC1INJ2 IV (11:22)
[2017-08-18] MEDS ORDERED: LEVO500T8 PO (11:22)
[2017-08-18 12:00] VITALS: BP 136/79; PULSE 85; RESP 18; TEMP 97.4; O2SAT 97
[2017-08-18 16:00] VITALS: BP 130/86; PULSE 77; RESP 18; O2SAT 96
--- NOTE | 2017-08-18 17:10 | HHI.PR ---
Subjective Remarks Nursing denies any deterioration since last night. Patient think that his toe swelling is better. PICC line was placed yesterday evening. Objective Vital Signs Date Time Temp Pulse Resp B/P (MAP) Pulse Ox O2 Delivery O2 Flow Rate FiO2 08/18/17 12:00 97.4 85 18 136/79 (98) 97 08/18/17 08:00 97.9 82 18 133/79 (97) 99 08/18/17 00:00 98.5 83 18 118/68 (85) 95 08/17/17 20:00 97.8 81 17 109/72 (84) 94 I/O 08/17/17 08/17/17 08/17/17 08/18/17 08/18/17 08/18/17 07:00 15:00 23:00 07:00 15:00 23:00 Intake Total 120 ml 1000 ml Balance 120 ml 1000 ml Intake Oral 120 ml IV Total 1000 ml # Voids 2 # Bowel Movements 0 Result Diagram: 08/17/17 0500 08/17/17 0500 Objective Remarks Left great toe appears more pain today with no obvious drainage Sitting up in bed, no acute distress A/P Assessment and Plan Toe cellulitis - IV vancomycin. PICC line has been placed, the patient IV antibiotics have been arranged. We'll discharge patient today. Patient has been maximal benefit from hospitalization and is clinically stable for discharge. Robbin Moses MD Aug 18, 2017 17:10
[2017-08-19] MEDS ORDERED: PHARMACY ORDERED LAB ONE (14:45)
== END 2017-08-18 18:03 | disposition home or self-care (01) | DRG 603 ==
LOC: PHED 18:12 → PH3B 19:14 → PHEDA 19:14 → UNDOADMOB 19:14 → OBSVTOIN 08-17 08:50 → PH3B 08-17 12:16
PROVIDERS: ADMIT Hospitalist; ATTEND Hospitalist
PROC: 05HY33Z Insertion of Infusion Device into Upper Vein, Percutaneous Approach (ICD-10-PCS; principal; 2017-08-17)
DX: L03.032 Cellulitis of left toe (principal); I48.91 Unspecified atrial fibrillation; F32.9 Major depressive disorder, single episode, unspecified; Z79.01 Long term (current) use of anticoagulants; G60.9 Hereditary and idiopathic neuropathy, unspecified
CPT/HCPCS: 36569; 71045; 76937; 80202; 82565; 85025; 85610; 96365; 96376; G0378; J3370; J7040; J7050